=== PATIENT | male | born 1990 | race Caucasian/White ===

== ENCOUNTER 2020-08-07 15:05 | Emergency (ER) | payer SELFPAY ==
[2020-08-07 15:13] VITALS: BP 131/87; PULSE 93; RESP 18; TEMP 36; O2SAT 99; BMI 27.3
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
--- NOTE | 2020-08-07 15:47 | XRR_ITS ---
PROCEDURE INFORMATION: Exam: XR Chest, 1 View Exam date and time: 08/07/2020 3:48 PM Age: 30 years old Clinical indication: Chest wall pain; Additional info: Left chest wall pain TECHNIQUE: Imaging protocol: XR of the chest Views: 1 view. COMPARISON: No relevant prior studies available. FINDINGS: Lungs: Unremarkable. No consolidation. Pleural space: Unremarkable. No pleural effusion. No pneumothorax. Heart/Mediastinum: Unremarkable. No cardiomegaly. Bones/joints: Unremarkable. XR/XR chest 1V [id number] IMPRESSION: No acute findings.
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
[2020-08-07] MEDS: ibuprofen 800 mg tablet PO (16:17)
[2020-08-07] MEDS: cyclobenzaprine 10 mg Tablet PO (16:18)
== END 2020-08-07 17:39 ==
PROVIDERS: Emergency Provider Family Medicine
DX: S39.012A Strain of muscle, fascia and tendon of lower back, initial encounter (principal); V59.9XXA Occupant (driver) (passenger) of pick-up truck or van injured in unspecified traffic accident, initial encounter
CPT/HCPCS: 12345; 70450; 70486; 71045; 71250; 72125; 74176; 99281; 99283